=== PATIENT | female | born 1950 | race African-American/Black ===

== ENCOUNTER 2018-12-23 22:25 | Emergency (ER) | payer MEDICARE ==
[~2018-12-23] VITALS: Ht 172.7 cm; Wt 95.3 kg
[2018-12-23 22:38] VITALS: BP 123/76
--- NOTE | 2018-12-23 22:38 | NUR ---
ED Nurse Note: pt walked into ED C/O pain to posterior right calf area. pt states there is no pain during rest but its painful when she walks. pt is alert x4., VSS. denies any trauma/ fall/ injury
--- NOTE | 2018-12-23 22:45 | NUR ---
ED Nurse Note: PAGED ULTRASOUND .
--- NOTE | 2018-12-23 23:05 | NUR ---
ED Nurse Note: pt was taken to have ultrasound of right leg.
--- NOTE | 2018-12-23 23:35 | NUR ---
ED Nurse Note: pt back from ultrasound.
[2018-12-23] MEDS ORDERED: ACETAMINOPHEN-1 EAC1 ORAL (23:49)
[2018-12-23] MEDS ORDERED: TYLENOL EXTRA500 MG ORAL (23:51)
[2018-12-23 23:54] VITALS: BP 129/76
--- NOTE | 2018-12-23 23:54 | NUR ---
ER DISCHARGE NOTE: Patient is cleared to be discharged per ERMD, pt is aox4, on room air, with stable vital signs. pt was given dc and prescription instructions, pt was able to verbalize understanding, pt id band removed without complications. pt is able to ambulate with steady gait. pt took all belongings.
--- NOTE | 2018-12-24 00:04 | Emergency Room Report ---
History of Present Illness General Chief Complaint: Pain Source: Patient Present Illness HPI 68-year-old female presents ED for evaluation. Complaining of right calf pain started a few days ago. Denies any recent fall or injury. Pain is sometimes a 10 out of 10, throbbing, nonradiating but denies any pain at this time. Worse with walking. States that there is no appreciable swelling. States that she had a "blockage" in her calf several years ago which required surgery to remove the clot. States she had poor circulation in her leg. No other aggravating relieving factors. Denies any other associated symptoms Allergies: Coded Allergies: No Known Allergies (Unverified , 12/23/18) Patient History Past Medical History: none Past Surgical History: none Pertinent Family History: none Social History: Denies: smoking, alcohol use, drug use Last Menstrual Period: na Now: No Immunizations: UTD Reviewed Nursing Documentation: PMH: Agreed; PSxH: Agreed Nursing Documentation-PMH Past Medical History: No Stated History Hx Hypertension: Yes Review of Systems All Other Systems: negative except mentioned in HPI Physical Exam Vital Signs Date Time Temp Pulse Resp B/P (MAP) Pulse Ox O2 Delivery O2 Flow Rate FiO2 12/23/18 22:29 98.2 70 18 95/70 (78) 96 12/23/18 22:38 Room Air Sp02 EP Interpretation: reviewed, normal General Appearance: no apparent distress, alert, GCS 15, non-toxic Head: normocephalic Eyes: bilateral eye normal inspection, bilateral eye PERRL ENT: normal ENT inspection Neck: normal inspection Respiratory: normal inspection Cardiovascular #1: normal inspection Gastrointestinal: normal inspection Rectal: deferred Genitourinary: no CVA tenderness Musculoskeletal: calf tenderness Neurologic: alert, oriented x3, responsive, motor strength/tone normal, sensory intact, speech normal Psychiatric: normal inspection Skin: no rash Lymphatic: normal inspection Medical Decision Making Diagnostic Impression: Primary Impression: Calf pain Qualified Codes: M79.661 - Pain in right lower leg ER Course Hospital Course 68 yo F presents to ED c/o R calf pain Differential diagnoses include: DVT, cellulitis, contusion, arterial insufficiency Clinical course Patient placed on stretcher after initial history and physical I ordered arterial/venous duplex Doppler ultrasound shows no evidence of DVT there is no evidence of arterial insufficiency on arterial duplex She has good peripheral pulses. Good color and temperature to her extremities. I am not concerned about an arterial insufficiency at this time. Reassurance given to patient. Will discharge to home. States she has a PMD I. I feel this is a highly complex case requiring extensive working including EKG/Rhythm strip, Xray/CT/US, Blood/urine lab work, repeat exams while in ED, and administration of strong opiates/narcotics for pain control, admission to hospital or close patient follow up. Diagnosis - calf pain Stable and discharged to home. Followup with PMD. Return to ED if symptoms recur or worsen CT/MRI/US Diagnostic Results CT/MRI/US Diagnostic Results : Imaging Test Ordered: venous duplex Impression venous duplex - no evidence of DVT arterial duplex - no arterial insufficiency Last Vital Signs Date Time Temp Pulse Resp B/P (MAP) Pulse Ox O2 Delivery O2 Flow Rate FiO2 12/23/18 23:54 98.1 79 18 129/76 98 Room Air Status: improved Disposition: HOME, SELF-CARE Condition: Stable Scripts Acetaminophen* (TYLENOL EXTRA STRENGTH*) 500 Mg Tablet 500 MG ORAL Q8H PRN for Prn Headache/Temp > 101, #30 TAB 0 Refills Prov: Malcolm Parish MD 12/23/18 [facility] 24 hour /7 days a week by Appointment Only [address] [facility] [id number] Patient Instructions: Muscle Strain, [id number] Malcolm Parish MD Dec 24, 2018 00:04
--- NOTE | 2018-12-24 00:30 | Diagnostic Imaging Report ---
Indication: Right leg pain Technique: Grayscale and duplex images of the right lower extremity veins Comparison: none Findings: Grayscale and duplex images demonstrate no evidence of intraluminal thrombus. Normal phasic Doppler waveforms, demonstrating normal augmentation response and no evidence of valvular insufficiency. Normal compressibility. Impression: Negative for evidence of right lower extremity deep venous thrombosis This agrees with the preliminary interpretation provided overnight by [facility]iology service.
== END 2018-12-23 23:45 | disposition home or self-care (01) ==
LOC: EMR 22:45
DX: M79.661 Pain in right lower leg (principal); I10 Essential (primary) hypertension
CPT/HCPCS: 93931; 93971; 99284